=== PATIENT | female | born 1995 | race Native Hawaiian/Other Pacific Islander ===

== ENCOUNTER 2017-03-05 23:16 | Inpatient (IN) | payer OTHER ==
[2017-03-06 00:32] LABS: EGFR Non-African American 136.6 (>60)
[2017-03-06 00:46] LABS: Urine Appearance Clear; Urine Blood Negative (Negative); Urine Color Straw; Urine Ketones Trace (Negative); Urine Protein Negative (Negative); Urine Specific Gravity 1.003 (1.010-1.030); Urine Urobilinogen Negative (Negative)
[2017-03-06 01:19] LABS: ABS Basophils 0.1 10^3/ul (0-0.2); ABS Eosinophils 0.5 10^3/ul (0-0.6); ABS Monocytes 0.9 10^3/ul (0-0.8); ABS Neutrophils 6.8 10^3/ul (1.5-7.7); ABS Nucleated RBC 0 10^3/ul; Hematocrit 38 % (35-47); Lymphocyte % 19.4 % (25-47); Mean Corpuscular HGB Conc 31 g/dl (31-36); Mean Corpuscular Hemoglobin 20 pg (27-31); Mean Corpuscular Volume 64 fL (80-97); Mean Platelet Volume 8 um3 (7.4-10.4); Platelet Count 320 10^3/ul (150-450); Red Blood Count 5.99 10^6/ul (4.0-5.4); Red Cell Distribution Width 16 % (10.5-15); White Blood Count 10.3 10^3/ul (3.5-10.8)
[2017-03-06 01:20] LABS: Eosinophil % 4.7 % (0-6); Nucleated Red Blood Cells % 0
[2017-03-06] MEDS ORDERED: LORazepam TAB(*) 1 MG PO ONE (05:03)
[2017-03-06] MEDS ORDERED: Al Hydrox/Mg Hydrox/Simet LIQ* 30 ML UDC PO PRN (06:33)
--- NOTE | 2017-03-06 06:49 | ED ---
Hugo Lopez Thomas, scribed for Mukul Craig on 03/06/17 at 0037 . Psychiatric Complaint - HPI Summary HPI Summary: The patient is a 21 year old female brought in with suicidal ideation. She was brought to the emergency department by her boyfriend. She is diagnosed with anxiety and depression. She has been complaint with her medication. - History Of Current Complaint Chief Complaint: EDMentalHealth Time Seen by Provider: 03/05/17 23:32 Hx Obtained From: Patient Onset/Duration: Still Present Severity Currently: Moderate Character: Depressed Aggravating Factor(s): Other - Unknown Alleviating Factor(s): Other - Unknown Related History: Positive For: Prior Psychiatric Issues Has Suicidal: Reports: Thoughts Has Homicidal: Denies: Thoughts - Allergies/Home Medications Allergies/Adverse Reactions: Allergies Allergy/AdvReac Type Severity Reaction Status Date / Time No Known Allergies Allergy Verified 03/06/17 00:21 PMH/Surg Hx/FS Hx/Imm Hx Endocrine/Hematology History: Denies: Hx Anticoagulant Therapy Psychiatric History: Reports: Hx Anxiety, Hx Depression Infectious Disease History: No Infectious Disease History: Denies: Traveled Outside the [place] in Last 30 Days - Family History Known Family History: Positive: Other - Patient denies relevant FHx - Social History Occupation: Student Lives: Dormitory/Roommates Alcohol Use: None Substance Use Type: Reports: None Smoking Status (MU): Never Smoked Tobacco Review of Systems Negative: Epistaxis Positive: Depressed, Other - Suicidal ideation All Other Systems Reviewed And Are Negative: Yes Physical Exam - Summary Physical Exam Summary: Appearance: Well appearing, no pain distress Skin: warm, dry, reflects adequate perfusion Head/face: normal Eyes: EOMI, MARIELA ENT: normal Neck: supple, non-tender Respiratory: CTA, breath sounds present Cardiovascular: RRR, pulses symmetrical Abdomen: non-tender, soft Bowel: present Musculoskeletal: normal, strength/ROM intact Neuro: normal, sensory motor intact, A&Ox3 Psychiatric: She has a depressed affect. She is tearful. Triage Information Reviewed: Yes Vital Signs On Initial Exam: Initial Vitals Temp Pulse Resp BP Pulse Ox 99.9 F 72 18 116/65 98 03/05/17 23:20 03/05/17 23:20 03/05/17 23:20 03/05/17 23:20 03/05/17 23:20 Vital Signs Reviewed: Yes Diagnostics - Vital Signs Vital Signs Temp Pulse Resp BP Pulse Ox 03/06/17 00:36 100.3 F 63 18 91/55 98 03/05/17 23:20 99.9 F 72 18 116/65 98 - Laboratory Lab Results: Lab Results 03/05/17 Range/Units 23:40 Sodium 134 (133-145) mmol/L Potassium 3.7 (3.5-5.0) mmol/L Chloride 104 (101-111) mmol/L Carbon Dioxide 22 (22-32) mmol/L Anion Gap 8 (2-11) mmol/L BUN 11 (6-24) mg/dL Creatinine 0.57 (0.51-0.95) mg/dL Est GFR ( Amer) 175.7 (>60) Est GFR (Non-Af Amer) 136.6 (>60) BUN/Creatinine Ratio 19.3 (8-20) Glucose 88 (70-100) mg/dL Calcium 9.2 (8.6-10.3) mg/dL Total Bilirubin 0.30 (0.2-1.0) mg/dL AST 15 (13-39) U/L ALT 10 (7-52) U/L Alkaline Phosphatase 48 (34-104) U/L Total Protein 6.8 (6.4-8.9) g/dL Albumin 4.4 (3.2-5.2) g/dL Globulin 2.4 (2-4) g/dL Albumin/Globulin Ratio 1.8 (1-3) TSH Pending Beta HCG, Quant Pending Salicylates < 2.50 (<30) mg/dL Acetaminophen < 15 mcg/mL Serum Alcohol < 10 (<10) mg/dL Result Diagrams: 03/05/17 23:40 03/05/17 23:40 Lab Statement: Any lab studies that have been ordered have been reviewed, and results considered in the medical decision making process. Course/Dx - Course Assessment/Plan: The patient is a 21 year old female brought in with suicidal ideation. The patient is cleared for mental health evaluation. The patient is signed out to the next ED physician pending mental health evaluation. - Differential Dx/Clinical Impression Differential Diagnosis/HQI/PQRI: Positive: Depression, Suicidal Ideation Provider Diagnosis: Depression Discharge - Discharge Plan Condition: Stable Disposition: OTHER Discharge Disposition Comment: Signed out to the next ED physician pending mental health evaluation. The documentation as recorded by the Hugo cason Thomas accurately reflects the service I personally performed and the decisions made by , Mukul Craig.
[2017-03-06] MEDS ORDERED: FLUoxetine CAP* 20 MG PO SCH (09:00)
[2017-03-06] MEDS: Vitamin THERAPEUTIC TAB PO SCH (09:12)
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
--- NOTE | 2017-03-06 11:53 | PN ---
MHU: Group Therapy Note - Service Type Service Type: [id number] Group Psychotherapy - Cognitive Behavioral Group Therapy ( CBT):Patient was attentive and participatory in CBT programming this morning, and remained in good behavioral control. Patient expressed positive insights regarding relevant treatment interventions and goals.
[2017-03-06] MEDS ORDERED: cloNIDine TAB* 0.1 MG PO PRN (16:47)
[2017-03-06] MEDS: clonazePAM TAB(*) 0.5 MG PO SCH (17:18)
[2017-03-06] MEDS ORDERED: QUEtiapine TAB* 25 MG PO SCH (21:00)
[2017-03-06] MEDS: traZODone TAB* 50 MG TAB PO SCH (22:49)
[2017-03-06] MEDS: CMCS:Brexpiprazole (NF) 0.5 MG TAB PO SCH (22:49)
[2017-03-07] MEDS: Acetaminophen TAB* 325 MG PO PRN (07:57)
[2017-03-07] MEDS: CMCS:Atomoxetine (NF) 40 MG CAP PO SCH (07:58)
[2017-03-07] MEDS: Vitamin THERAPEUTIC TAB PO SCH (07:58)
[2017-03-07] MEDS: clonazePAM TAB(*) 0.5 MG PO SCH ×2 (08:01→17:28)
--- NOTE | 2017-03-07 13:49 | PN ---
Subjective - Subjective Subjective: Psychiatric Attending Progress Note: Patient was initially quite upset and labile when she came onto the unit yesterday. Since that time she has settled in quite nicely. no longer crying for mother. She has been cooperative and attending groups with participation and actually shows fair amount of insight and motivation to learn about strategies for managing anxiety and depression. I met with Praveen Today for an hour and learned important information about her mental status, history, strengths, and goals Despite diagnosis of Autism spectrum disorder, Praveen has made gains socially. has boyfriend from [employer] that she has been seeing x 4 years. at [place] she has many friends that she eats meals with and talks to on social media shared with me that she does not feel overwhelmed by returning to college. Decrease from 5 to 4 courses has helped reduce her level of stress and feels that she will be able to handle to work load Was very receptive to medication changes which we discussed in detail. did not feel prozac was helping with anxiety or mood. was oversedated by charlie. We discussed four medications as follows and patient gave informed consent (after reviewing benefits, risks, side effects) to start taking these medications: 1. Trazodone 50 mg qhs for insomnia 2. Rexulti 1 mg qhs for affective instability 3. Klonopin 0.25 mg BId for anxiety and panic 4. Strattera 40 mg for adhd (patient endorsed both hyperactive and inattentive symptoms of adhd) MSE: no SI today brighter affect today hyperverbal but not pressured Impression: ASD high functioning ADHD combined type unspecified Depressive Disorder Plan: medications as above discharge planned for monday will return to school and f/u with providers at [facility]
[2017-03-07] MEDS: traZODone TAB* 50 MG TAB PO SCH (21:02)
[2017-03-07] MEDS: CMCS:Brexpiprazole (NF) 0.5 MG TAB PO SCH (21:02)
[2017-03-08] MEDS: Vitamin THERAPEUTIC TAB PO SCH (08:58)
[2017-03-08] MEDS: CMCS:Atomoxetine (NF) 40 MG CAP PO SCH (08:59)
[2017-03-08] MEDS: clonazePAM TAB(*) 0.5 MG PO SCH (08:59)
[2017-03-08] MEDS: Acetaminophen TAB* 325 MG PO PRN (09:01)
--- NOTE | 2017-03-08 11:46 | PN ---
Subjective - Subjective Subjective: Psychiatric Attending Progress Note Patient attended groups and has not demonstrated the lability that was present when she was first admitted. patient has been particpating in individual and group sessions and clearly shows interest in learning to minimize the effects of anxeity and depression and learn effective coping and managment strategies. Despite decrease in klonpin to 0.25 mg BID she experienced sedation after this morning's dose. patient tolerated first doses of Rexulti and Strattera respectively without any side effects reported Patient has been in touch with mother. Patient also had a meeting with the [facility] counselor yesterday and she felt better after speaking with the couselor. patient was told to inform her teachers that she has been in the hospital so that modifications can be made by teachers in case she requires extension on due date, or extra help. patient intends to arrange for tutoring in JAVA and Linear Algebra classes. She feels confident and about returning to [employer] after discharge from the hospital. She understands that she has an option to withdraw for the semester by Mar 12 with 90 percent tuition reimbursement but feels emotionally up to returning. MSE: poor eye contact. oddly related speech: articulate,fluent mood: hyperthymic, not dysphoric today affect: odd TP organized TC no evidence of psychosis. denies SI today insight: fair judgment: tenuous due to tendency to be impulsive Impression ASD ADHD combined mild to moderate mood disorder unspecified Plan: Strattera 40 mg QAM Trazodone 50 mg qhs Rexulti 0.5 mg QHs d/c scheduled klonopin and make it bid prn due to day time sedation side effect discharge planned for monday. continue to titrate strattera/rexulti MMPI pending
[2017-03-08] MEDS: traZODone TAB* 50 MG TAB PO SCH (20:16)
[2017-03-08] MEDS: CMCS:Brexpiprazole (NF) 0.5 MG TAB PO SCH (20:16)
[2017-03-09] MEDS: CMCS:Atomoxetine (NF) 40 MG CAP PO SCH (08:13)
[2017-03-09] MEDS: Vitamin THERAPEUTIC TAB PO SCH (08:13)
--- NOTE | 2017-03-09 11:28 | PN ---
MHU: Group Therapy Note - Service Type Service Type: [id number] Group Psychotherapy - Cognitive Behavioral Group Therapy ( CBT):Patient was attentive and participatory in CBT programming this morning, and remained in good behavioral control. Patient expressed positive insights regarding relevant treatment interventions and goals.
--- NOTE | 2017-03-09 15:33 | PN ---
Subjective - Subjective Subjective: Psychiatric Attending Progress note attending groups. less anxiety today. reports mood is brighter. denies having suicidal ideation, intent or plan. Tolerating new medications well without any adverse side effects. Looks forward to discharge tomorrow. has plans to attend mental health support group at [facility]. Objective - Appearance Appearance: Well Developed/Nourished Dysmorphic Features: No Hygiene: Normal Grooming: Fairly Well Kept - Behavior Psychomotor Activities: Abnormal-Increased Exhibits Abnormal Movement: No - Attitude and Relatedness Attitude and Relatedness: Cooperative Eye Contact: Poor - Speech Quality: Unpressured Latencies: Normal Quantity: Appropriate - Mood Patient's Decription of Mood: "Good" - Affect Observed Affect: Good Affect Consistent with: Euthymia - Thought Process Patient's Thought Process: Coherent Thought Content: No Passive Wish, No Suicidal Planning, No Homicidal Ideation, No Paranoid Ideation - Sensorium Experiencing Hallucinations: No, Sensorium is Clear Type of Hallucinations: Visual: No, Auditory: No, Command: No - Level of Consciousness Level of Consciousness: Alert Orientation: Yes Intact, Yes Orientated to Time, Yes Orientated to Place, Yes Orientated to Person - Impulse Control Impulse Control: Intact - Insight and Judgement Insight and Judgement: Good - Group Participation Particating in Group Activities: Yes - Medication Management Medication Management Adherence: Yes Assessment - Assessment Merits Inpatient Hospitalization: For Stabilization, For Discharge Planning Clinical Impression: 21 yo with ASD, unspecified depressive disorder, ADHD, admitted with recurrent SI in the context of academic stress at school. SI has remitted. patient's mood is stable and she is tolerating medications without side effects Plan - Plan Medications: Current Medications Acetaminophen (Tylenol Tab*) 650 mg PO Q4H PRN PRN Reason: PAIN or TEMP > 101 F Last Admin: 03/08/17 09:01 Dose: 650 mg Al Hydrox/Mg Hydrox/Simethicone (Maalox Plus*) 30 ml PO Q4H PRN PRN Reason: INDIGESTION Atomoxetine HCl (Strattera (Nf)) 40 mg PO DAILY@0900 [facility] PRN Reason: Protocol Last Admin: 03/09/17 08:13 Dose: 40 mg Brexpiprazole (Rexulti 0.5 Mg Tab (Nf)) 0.5 mg PO BEDTIME [facility] Last Admin: 03/08/17 20:16 Dose: 0.5 mg Clonidine HCl (Catapres Tab*) 0.1 mg PO BID PRN PRN Reason: anxiety/agitation Multivitamins (Theragran Tab*) 1 tab PO DAILY [facility] Last Admin: 03/09/17 08:13 Dose: 1 tab Throat Lozenges (Chloraseptic Scott*) 1 scott PO Q2H PRN PRN Reason: SORE THROAT Trazodone HCl (Desyrel Tab*) 50 mg PO BEDTIME [facility] Last Admin: 03/08/17 20:16 Dose: 50 mg parents to come in at 1 pm for family meeting followed by discharge patient will follow at [facility] at [facility]
--- NOTE | 2017-03-09 17:42 | PN ---
MHU: Group Therapy Note - Service Type Service Type: [id number] Group Psychotherapy - Medication Education Group: Patient was attentive and participatory in group, and remained in good behavioral control. Patient expressed positive insights regarding relevant treatment interventions. Patient stated understanding of material discussed and had appropriate questions.
[2017-03-09] MEDS: traZODone TAB* 50 MG TAB PO SCH (20:09)
[2017-03-09] MEDS: CMCS:Brexpiprazole (NF) 0.5 MG TAB PO SCH (20:09)
[2017-03-09] MEDS: Benzocaine/Menthol LOZ* 1 LOZENGE PO PRN (20:11)
[2017-03-10] MEDS: Acetaminophen TAB* 325 MG PO PRN (03:44)
[2017-03-10] MEDS: Benzocaine/Menthol LOZ* 1 LOZENGE PO PRN (03:44)
[2017-03-10] MEDS: CMCS:Atomoxetine (NF) 40 MG CAP PO SCH (08:28)
[2017-03-10] MEDS: Vitamin THERAPEUTIC TAB PO SCH (08:28)
[2017-03-10 09:26] VITALS: BP 99/54
--- NOTE | 2017-03-10 10:51 | DCNOTE ---
DC Assessment - Assessment Clinical Impression: 21 yo with ASD, unspecified depressive disorder, ADHD, admitted with recurrent SI in the context of academic stress at school. SI has remitted. patient's mood is stable and she is tolerating medications without side effects Discharge Planning - Discharge Planning Medications: Current Medications Acetaminophen (Tylenol Tab*) 650 mg PO Q4H PRN PRN Reason: PAIN or TEMP > 101 F Last Admin: 03/10/17 03:44 Dose: 650 mg Al Hydrox/Mg Hydrox/Simethicone (Maalox Plus*) 30 ml PO Q4H PRN PRN Reason: INDIGESTION Atomoxetine HCl (Strattera (Nf)) 40 mg PO DAILY@0900 [facility] PRN Reason: Protocol Last Admin: 03/10/17 08:28 Dose: 40 mg Brexpiprazole (Rexulti 0.5 Mg Tab (Nf)) 0.5 mg PO BEDTIME [facility] Last Admin: 03/09/17 20:09 Dose: 0.5 mg Clonidine HCl (Catapres Tab*) 0.1 mg PO BID PRN PRN Reason: anxiety/agitation Multivitamins (Theragran Tab*) 1 tab PO DAILY [facility] Last Admin: 03/10/17 08:28 Dose: 1 tab Throat Lozenges (Chloraseptic Scott*) 1 scott PO Q2H PRN PRN Reason: SORE THROAT Last Admin: 03/10/17 03:44 Dose: 1 scott Trazodone HCl (Desyrel Tab*) 50 mg PO BEDTIME [facility] Last Admin: 03/09/17 20:09 Dose: 50 mg Discharge Planning: Prescriptions provided for discharge [] Yes [] No Follow up care details as per social work arrangements. Patient response to discharge plan: [] eager for discharge [] agreeable with discharge plan [] ambivalent about discharge [] disagrees with discharge today
--- NOTE | 2017-03-10 13:32 | PN ---
MHU: Group Therapy Note - Service Type Service Type: [id number] Group Psychotherapy - Cognitive Behavioral Group Therapy ( CBT):Patient was attentive and participatory in CBT programming this morning, and remained in good behavioral control. Patient expressed positive insights regarding relevant treatment interventions and goals.
== END 2017-03-10 14:25 | disposition home or self-care (01) | DRG 884 ==
LOC: ED 23:16 → BSU 03-06 06:44
PROVIDERS: ADMIT Psychiatry & Neurology Psychiatry; ATTEND Psychiatry & Neurology Psychiatry
PROC: GZHZZZZ Group Psychotherapy (ICD-10-PCS; principal; 2017-03-06)
DX: F84.0 Autistic disorder (principal); F32.1 Major depressive disorder, single episode, moderate; R45.851 Suicidal ideations; F90.2 Attention-deficit hyperactivity disorder, combined type; F41.0 Panic disorder [episodic paroxysmal anxiety]; Z81.8 Family history of other mental and behavioral disorders; F39 Unspecified mood [affective] disorder
CPT/HCPCS: 36415; 80053; 80307; 80320; 80329; 81003; 81015; 84443; 84702; 85025; 85060; 87086; 90853; 99222; 99231; 99238; A9270-GY; G0480

== ENCOUNTER 2018-06-19 22:56 | Inpatient (IN) | payer OTHER ==
--- NOTE | 2018-06-19 23:08 | ED ---
Psychiatric Complaint - HPI Summary HPI Summary: Pt is a 22 y/o female brought in by EMS and police who presents to the ED c/o SI. As per EMS, pt posted online ([employer]) about killing herself, specifically by hanging or shooting. Upon EMS arrival pt states that her SI resolved. Pt states that she wasnt in the right head space and it was a cry for help. She was having intrusive thoughts of SI. She is stressed about final exams and wants to leave to go study. Pt also notes she had SI 2 months ago, and has been hospitalized in February of 2017. She denies the use of drugs or alcohol. Pt is prescribed Abilify, Ritalin, and Duloxetine. PMHx autism, ADHD, anxiety, panic disorder, depression. - History Of Current Complaint Chief Complaint: EDSuicidal Time Seen by Provider: 06/19/18 22:57 Hx Obtained From: Patient, EMS, Medical Records Onset/Duration: Gradual Onset, Resolved Character: Depressed Aggravating Factor(s): Recent Stress Related History: Positive For: Prior Psychiatric Issues Has Suicidal: Reports: Thoughts, With A Plan - Allergies/Home Medications Allergies/Adverse Reactions: Allergies Allergy/AdvReac Type Severity Reaction Status Date / Time No Known Allergies Allergy Verified 03/06/17 00:21 Home Medications: Home Medications ARIPiprazole TAB* [Abilify 2 MG TAB*] 2 mg PO DAILY 06/19/18 [History Confirmed 06/20/18] Duloxetine HCl [Cymbalta] 20 mg PO DAILY 06/19/18 [History Confirmed 06/20/18] Methylphenidate TAB* [Ritalin TAB*] 5 mg PO DAILY 06/19/18 [History Confirmed ] Methylphenidate TAB* [Ritalin TAB*] 20 mg PO DAILY 06/19/18 [History Confirmed 06/20/18] PMH/Surg Hx/FS Hx/Imm Hx Endocrine/Hematology History: Denies: Hx Anticoagulant Therapy Sensory History: Reports: Hx Contacts or Glasses Denies: Hx Hearing Aid Opthamlomology History: Reports: Hx Contacts or Glasses Psychiatric History: Reports: Hx Anxiety, Hx Attention Deficit Hyperactivity Disorder, Hx Autism, Hx Depression, Hx Panic Disorder, Hx Inpatient Treatment, Hx Community Mental Health Tx Denies: Hx Eating Disorder, Hx Post Traumatic Stress Disorder, Hx Schizophrenia, Hx Bipolar Disorder, Hx Suicide Attempt, Hx of Violent Episodes Against Others, Hx Substance Abuse, Other Psychiatric Issues/Disorders Infectious Disease History: No Infectious Disease History: Denies: Traveled Outside the [place] in Last 30 Days - Family History Known Family History: Positive: Non-Contributory - Social History Alcohol Use: None Hx Substance Use: No Substance Use Type: Reports: None Hx Tobacco Use: No Smoking Status (MU): Never Smoked Tobacco Review of Systems Negative: Fever Positive: Other - SI All Other Systems Reviewed And Are Negative: Yes Physical Exam - Summary Physical Exam Summary: Appearance: well appearing, no pain distress Skin: warm, dry, reflects adequate perfusion Head/face: normal Eyes: EOMI, MARIELA ENT: mucous membranes moist Neck: supple, non-tender Respiratory: CTA, breath sounds present Cardiovascular: RRR, pulses symmetrical Abdomen: non-tender, soft Bowel Sounds: present Musculoskeletal: normal, strength/ROM intact Neuro: normal, sensory motor intact, A&Ox3 Psych: machine-like speech patterns Triage Information Reviewed: Yes Vital Signs On Initial Exam: Initial Vitals Temp Pulse Resp BP Pulse Ox 98.4 F 102 18 144/89 99 06/19/18 22:57 06/19/18 22:57 06/19/18 22:57 06/19/18 22:57 06/19/18 22:57 Vital Signs Reviewed: Yes Diagnostics - Vital Signs Vital Signs Temp Pulse Resp BP Pulse Ox 06/19/18 22:57 98.4 F 102 18 144/89 99 - Laboratory Result Diagrams: 06/19/18 23:01 06/19/18 23:01 Lab Statement: Any lab studies that have been ordered have been reviewed, and results considered in the medical decision making process. Re-Evaluation - Re-Evaluation First Eval Re-Evaluation Time: 23:04 Change: Unchanged Comment: Pt is medically cleared for a MHE. Course/Dx - Course Course Of Treatment: Patient was medically evaluated and cleared for psychiatric evaluation. She has a history of autism spectrum disorder has been in mated several times for mental health issue. Following crisis evaluation was elected by the psychiatrist that she be admitted involuntarily. The patient stable through her ER course. - Differential Dx/Clinical Impression Differential Diagnosis/HQI/PQRI: Positive: Anxiety, Depression, Suicidal Ideation Provider Diagnosis: Autism spectrum disorder, Depression, Adjustment disorder - Physician Notifications Discussed Care Of Patient With: Anatoly Chavez Time Discussed With Above Provider: 02:26 Instructed by Provider To: Admit As Inpatient - As per MH unleavened dough mixer, pt is involuntarily admitted. Discharge - Sign-Out/Discharge Documenting (check all that apply): Patient Departure - Admit Patient Received Moderate/Deep Sedation with Procedure: No - Discharge Plan Condition: Stable Disposition: PSYCHIATRIC FACILITY-[facility] [place] - Billing Disposition and Condition Condition: STABLE Disposition: Psychiatric Facility [facility] [place] - Attestation Statements Document Initiated by Scribe: Yes Documenting Scribe: Lidia Heath Provider For Whom Scribe is Documenting (Include Credential): Giovani Yen MD Scribe Attestation: Lidia Lopez, scribed for Giovani Yen MD on 06/20/18 at 0343. Scribe Documentation Reviewed: Yes Provider Attestation: The documentation as recorded by the scribLidia gunter accurately reflects the service I personally performed and the decisions made by , Giovani Yen MD Status of Scribe Document: Viewed
[2018-06-19 23:10] LABS: Hematocrit 41 % (35-47); Hemoglobin 12.7 g/dL (12.0-16.0); Mean Corpuscular HGB Conc 31 g/dL (31-36); Mean Corpuscular Hemoglobin 20 pg (27-31); Mean Corpuscular Volume 64 fL (80-97); Platelet Count 396 10^3/uL (150-450); Red Blood Count 6.33 10^6 /uL (3.70-4.87); Red Cell Distribution Width 16 % (10.5-15); White Blood Count 10.1 10^3/uL (3.5-10.8)
[2018-06-19 23:27] LABS: ABS Basophils 0.1 10^3/ul (0-0.2); ABS Eosinophils 0.2 10^3/ul (0-0.6); ABS Lymphocytes 2.3 10^3/ul (1.0-4.8); ABS Monocytes 0.9 10^3/ul (0-0.8); ABS Neutrophils 6.5 10^3/ul (1.5-7.7); Nucleated Red Blood Cells % 0.1
[2018-06-19 23:28] LABS: ALT 18 U/L (7-52); AST 25 U/L (13-39); Albumin 4.6 g/dL (3.2-5.2); Albumin/Globulin Ratio 1.6 (1-3); Alkaline Phosphatase 49 U/L (34-104); Anion Gap 9 mmol/L (2-11); BUN/Creatinine Ratio 18.3 (8-20); Blood Urea Nitrogen 11 mg/dL (6-24); CO2 Carbon Dioxide 23 mmol/L (22-32); Calcium 9.4 mg/dL (8.6-10.3); Chloride 105 mmol/L (101-111); EGFR African American 154.2 (>60); EGFR Non-African American 127.5 (>60); Globulin 2.8 g/dL (2-4); Glucose 92 mg/dL (70-100); Microcytosis 2+; Potassium 3.8 mmol/L (3.5-5.0); Sodium 137 mmol/L (135-145); Total Protein 7.4 g/dL (6.4-8.9)
[2018-06-19 23:33] LABS: Alcohol < 10 mg/dL (<10); Salicylate < 2.50 mg/dL (<30)
[2018-06-19 23:34] LABS: HCG Pregnancy < 0.60 mIU/mL
[2018-06-19 23:47] LABS: TSH (Thyroid Stimulating Horm) 2.56 mcIU/mL (0.34-5.60)
[2018-06-19 23:49] LABS: Acetaminophen 3 mcg/mL
[2018-06-20] MEDS ORDERED: Acetaminophen TAB* 325 MG PO PRN (03:51)
[2018-06-20] MEDS ORDERED: Al Hydrox/Mg Hydrox/Simet LIQ* 30 ML UDC PO PRN (03:51)
--- NOTE | 2018-06-20 09:43 | HP ---
H&P (Free Text) History and Physical: Justification for admission: Immediate Safety. CC " I am stressed out" The patient was brought to [facility] by police after the patient posted on [employer] internet site that she had two plans of killing herself. One included shoot herself in the head with a gun. She imagined how the blood would pool and that all her peers would find out through email that she . The other plan included hanging herself in the dorm room. She did not act on these plans and describes them as intrusive thoughts can cause distress. She denied access to firearms or stockpiles of medications. She reported no change in her sleep and or appetite. Patient identifies current stressors as final exams approaching. She began crying and is requesting to see her mother. She said " I am being held against my will and dont need to be here". The patient denied homicidal ideation intent or plan. The patient denied auditory and/ or visual hallucinations. She denied self injurious behavior. Family meeting took place in the comfort room. Father was preoccupied with knowing if [facility] would allow a extension for Praveen take her exam. MDD Patient reported feeling depressed. She reported having crying spells, feeling empty inside, with feelings of hopelessness, and worthlessness. Denied unintentional weight loss and appetite. Denied interruption of sleep , or feeling tired throughout the day. Denied loss of energy or lack of motivation to complete tasks. Denied overwhelming feelings of guilt or decreased concentration. Reported recurrent thoughts of . Anxiety She reported intense anxiety particularly when she experiences intrusive morbid thoughts. She felt restless, high strung, and worrying too much most of the time. Bipolar Denied symptoms of nathaniel such as having many ideas at once. Denied increased talkativeness where no one can interrupt. Denied feeling irritable most of the time while having an persistent abundance of energy most of the day without the use of energy drinks, stimulants, or recreational drug use. Denied an increase in intensity in goal directed activities. Denied having the decreased need to sleep for days , having prolonged elevated heighted mood , or feeling on top of the world. Denied impulsive risky sexual encounters. Denied spending money recklessly , going on spending sprees wiping out savings. Denied impulsively traveling out of town or country, having super singh, and unrealistic wealth or fame. Psychosis Does not endorse hearing things that other people do not hear or seeing things other people do not see. Denied feeling that TV is making references. Denied feeling that people are spying , following , or reading their thoughts. Phobias: Patient denied having excessive fear of a particular thing or situation. Eating disorders: Patient denied having excessive eating habits or feelings of guilt after eating. Denied repeated episodes of self induced vomiting after eating. PTSD Denied flashbacks, nightmares and avoidance of a prior traumatic event. PAST PSYCHIATRIC HISTORY: Prior Diagnosis : Autism spectrum disorder , ADHD, Major Depressive disorder without psychotic features, Panic Disorder. History of past Psychiatric Hospitalizations: 2 prior psychiatric admission. 1st hospitalization at [facility] [facility] [place] ideation. History of past suicide/homicide attempts : Denied past suicide attempts. Denied past homicidal incidents. Outpatient follow-up: Therapy with Abhilash Gutierrez and Psychiatrist Dr. Coy Medications: Past trials of medications include prozac 20mg daily, seroquel 50mg qhs, Rexulti. Current medications include ritalin 20mg daily am and 5mg in the afternoon, cymbalta 20mg daily, abilify 2mg daily. FAMILY HISTORY: - Suicide: Denied family history of suicide. - Mental illness: Uncle Schizophrenia - Substance abuse: Denied substance abuse among family members. SUBSTANCE ABUSE HISTORY: Denied using alcohol, tobacco, heroin and cocaine other illicit substances. Denied recreationally abusing pills. Denied past Substance abuse treatment. SOCIAL HISTORY: Single no children. Currently attending [employer]. Born in the [facility] and moved to the at age 6. Raised by mother and father in [facility] . Diagnosed ASD at age 7 or 8 and received 504 plan in school. Denied a history of physical and or sexual abuse. - Legal history: Denied - service history: Denied PAST MEDICAL HISTORY: Denied heart disease, diabetes, cancer and/ or other medical conditions. - Allergies: Denied drug or other allergies. Physical Exam: Please see ED note Mental Status Exam on Admission APPEARANCE : 22 year old Croatian female who appears stated age. Patient is not malodourous, and appears to have fair hygiene and grooming. BEHAVIOR: Cooperative , calm EYE CONTACT: Fair PSYCHOMOTOR ACTIVITY: No psychomotor agitation or retardation. MOVEMENTS: No abnormal movements observed. SPEECH : Monotone with a delay. Slow rate and rhythm MOOD : " Sad" AFFECT : Type is depressed Range is blunted with shallow depth Mood Incongruent, Labile THOUGHT PROCESS: Formulated and organized in a logical, linear goal directed manner. perseveration THOUGHT CONTENT: poverty of content, preoccupied with discharge PERCEPTION: No current auditory or visual hallucinations. Doesnt appear to be responding to internal cues. SUICIDALITY Recent suicidal ideation with plan. HOMICIDALITY Denied homicidal ideation, intent or plan. Insight/judgment: Poor insight and judgment ORIENTATION: Oriented to self, location, and time. Diagnosis on Admission: Autism spectrum disorder, ADHD, Major Depressive disorder without psychotic features, Obsessive compulsive disorder. Assessment: 22 year old [place] female with history of Autism spectrum disorder , ADHD, Major Depressive disorder without psychotic features, Panic Disorder came to the hospital with suicidal ideation and was admitted to the BSU at [facility]. Plan #Admit to BSU, Q15 minute observation. Start regular diet. Encourage participation in activities on the milieu. #Patient evaluated in ED and was determined by the emergency room Physician to be medically fit for admission to the BSU. # Justification for Admission: For immediate safety per outlined in the [place] Mental Hygiene Code. # Voluntary admission. The patient requires inpatient admission at this time to assure safety, receive treatment and work toward stabilization. # Labs ordered: CBC, CMP, UDS, TSH, HBA1c, TSH, BHCG Toxicology screen, Urine analysis, and lipid profile. #B-HCG was ordered and results are negative. # Obtain collateral information once release is signed. # Family visit took place with mother and father # Collaboration with Social Work to assist with disposition and after care. #Goals before discharge include: Reduce intrusive thoughts. # Start luvox 100mg daily D/C Cymbalta # Start Vyvanse 30mg daily in place of ritalin Acetaminophen (Tylenol Tab*) 650 mg PO Q4H PRN PRN Reason: PAIN or TEMP > 101 F Al Hydrox/Mg Hydrox/Simethicone (Maalox Plus*) 30 ml PO Q4H PRN PRN Reason: INDIGESTION Aripiprazole (Abilify Tab*) 2 mg PO DAILY [facility] Last Admin: 06/20/18 12:38 Dose: 2 mg Duloxetine HCl (Cymbalta Cap*) 20 mg PO DAILY [facility] Multivitamins (Theragran Tab*) 1 tab PO DAILY [facility] Last Admin: 06/20/18 09:52 Dose: Not Given Propranolol HCl (Inderal Tab*) 5 mg PO TID [facility] Last Admin: 06/20/18 12:35 Dose: Not Given The risks, benefits, and alternative treatment options were discussed as well as of the risks of refusing treatment. After this discussion and an acknowledgement of this understanding was made. A risk/ benefit assessment of treatment was considered and discussed with the patient. When comparing the risks of treatment with the dangers of not receiving treatment, the benefits of treatment outweigh the treatment risks at this time. Risks of suicidal ideation , behavioral changes, dystonia, movement disorders, cardiac conduction changes , serotonin syndrome, metabolic risks and NMS were among some of the risks discussed. Vital Signs Temp Pulse Resp BP Pulse Ox 98.6 F 77 16 113/64 99 06/20/18 07:34 06/20/18 07:34 06/20/18 07:34 06/20/18 07:34 06/20/18 07:34 Sodium 137 mmol/L (135-145) 06/19/18 23:01 Potassium 3.8 mmol/L (3.5-5.0) 06/19/18 23:01 BUN 11 mg/dL (6-24) 06/19/18 23:01 Creatinine 0.60 mg/dL (0.51-0.95) 06/19/18 23:01 Calcium 9.4 mg/dL (8.6-10.3) 06/19/18 23:01 AST 25 U/L (13-39) 06/19/18 23:01 ALT 18 U/L (7-52) 06/19/18 23:01
[2018-06-20] MEDS: Vitamin THERAPEUTIC TAB PO SCH (09:52)
[2018-06-20] MEDS ORDERED: FluvoxaMINE (NF) 50 MG TAB PO SCH (12:00)
[2018-06-20] MEDS ORDERED: DULoxetine DR CAP* 20 MG CAP.DR PO SCH ×2 (12:00→13:00)
[2018-06-20] MEDS: Propranolol TAB* 10 MG PO SCH ×2 (12:35→20:36)
[2018-06-20] MEDS: ARIPiprazole TAB* 2 MG PO SCH (12:38)
[2018-06-21] MEDS: CMCS:Lisdexamfetamine(NF) 10 MG CAP PO SCH (08:59)
[2018-06-21] MEDS: Vitamin THERAPEUTIC TAB PO SCH (08:59)
[2018-06-21] MEDS: ARIPiprazole TAB* 2 MG PO SCH (08:59)
[2018-06-21] MEDS: CMCS:FluvoxaMINE (NF) 50 MG TAB PO SCH (08:59)
--- NOTE | 2018-06-21 10:55 | PN ---
Subjective - Subjective Date of Service: 06/21/18 Service Type: [id number] Hosp care 35 min high complexity Subjective: Nursing Report: Patient was visible on unit, no chemical restraints or PRNs. Slept overnight without incident. Attending group activities. CC: "I have imaginary friends Patient was seen and evaluated today. She reported that she is upset because one of her imaginary friends was shot in the foot. She writes down in a journal about what happens between her 4 imaginary friends. The patient shows difficultly in maintaining a conversation however expressed that she would like to do school work and use her computer. She reported having an adequate appetite and sleep. The patient reports attending and participating in day groups. Per nursing no behavioral issues or overnight events reported. Patient reported that she is tolerating medications without side effects. Objective - General Observations Appearance: Neat Appears Stated Age: Yes Stature: WNL Posture: WNL Eye Contact: Avoidant Behavior/Activity: Slowed - Interaction Observations Attitude Towards Examiner: Evasive Stated Mood: Anxious Affect: Blunted, Flat Speech Pattern/Tone: Loud Volume Thought Process: Blocking Perception: WNL Thought Content: Preoccupation/Ruminations Thought Process: Lethality: Passive Wish Hallucination Type: None - Cognitive Function Orientation: A&O x 4 Level of Consciousness: Awake Cognition: Impaired Ability to Abstract Estimated Intelligence: Borderline Range Insight: Difficulty Acknowledging Presence of Psyciatric Problems - Medication Compliance Cooperative with Inpatient Medication Regimen: Yes - Group Participation Participates in Group Activities: Yes Assessment - Assessment Merits Inpatient Hospitalization: For Immediate Safety Clinical Impression: 22 year old female [employer] Student admitted to the BSU after making suicidal statements on [employer] blog. Plan - Plan Treatment Plan: Name: SHAISTA MATTHEW Birthdate: 1995 [id number] #Q30 minute observation with staff pass and computer access #The patient requires inpatient admission at this time to assure safety, receive treatment and work toward stabilization. # Family visit took place with mother and father yesterday. # Family to visit during regular visiting hours # Collaboration with Social Work to assist with disposition and after care. #Goals before discharge include: Reduce intrusive thoughts. # Luvox 100mg daily # Vyvanse 30mg daily Sodium 137 mmol/L (135-145) 06/19/18 23:01 Potassium 3.8 mmol/L (3.5-5.0) 06/19/18 23:01 BUN 11 mg/dL (6-24) 06/19/18 23:01 Creatinine 0.60 mg/dL (0.51-0.95) 06/19/18 23:01 Hemoglobin A1c 5.2 % (4.0-5.6) 06/21/18 07:21 Calcium 9.4 mg/dL (8.6-10.3) 06/19/18 23:01 AST 25 U/L (13-39) 06/19/18 23:01 ALT 18 U/L (7-52) 06/19/18 23:01 Triglycerides 47 mg/dL 06/21/18 07:21 Cholesterol 135 mg/dL 06/21/18 07:21 LDL Cholesterol 63 mg/dL 06/21/18 07:21 Vital Signs Temp Pulse Resp BP Pulse Ox 98.6 F 77 16 113/64 99 06/20/18 07:34 06/20/18 07:34 06/20/18 07:34 06/20/18 07:34 06/20/18 07:34 Continued Medication Management: Different Medication Medications: Current Medications Acetaminophen (Tylenol Tab*) 650 mg PO Q4H PRN PRN Reason: PAIN or TEMP > 101 F Al Hydrox/Mg Hydrox/Simethicone (Maalox Plus*) 30 ml PO Q4H PRN PRN Reason: INDIGESTION Aripiprazole (Abilify Tab*) 2 mg PO DAILY [facility] Last Admin: 06/21/18 08:59 Dose: 2 mg Fluvoxamine Maleate (Fluvoxamine (Nf)) 100 mg PO DAILY [facility] Last Admin: 06/21/18 08:59 Dose: 100 mg Lisdexamfetamine Dimesylate (Vyvanse(Nf)) 30 mg PO DAILY [facility] Last Admin: 06/21/18 08:59 Dose: 30 mg Multivitamins (Theragran Tab*) 1 tab PO DAILY [facility] Last Admin: 06/21/18 08:59 Dose: 1 tab - Discharge Plan Discharge Plan: Inpatient Hospitalization
[2018-06-22] MEDS: ARIPiprazole TAB* 2 MG PO SCH (08:11)
[2018-06-22] MEDS: CMCS:FluvoxaMINE (NF) 50 MG TAB PO SCH (08:12)
[2018-06-22] MEDS: Vitamin THERAPEUTIC TAB PO SCH (08:12)
[2018-06-22] MEDS: CMCS:Lisdexamfetamine(NF) 10 MG CAP PO SCH (08:14)
--- NOTE | 2018-06-22 10:38 | PN ---
Subjective - Subjective Date of Service: 06/22/18 Service Type: [id number] Hosp care 35 min high complexity Subjective: Nursing Report: Patient was visible on unit, no chemical restraints or PRNs. Slept overnight without incident. Attending group activities. CC: "I am okay Patient was seen and evaluated today. She reported that she slept well but was woken up in the middle of the night by noise and went back to bed. She said that her imaginary friends are upset about it. She said there are 100 imaginary friends but she only keeps track of 4 of them. She noted that she prefers the new medication and noticed that her concentration has been maintained longer. She reported having an adequate appetite and sleep. The patient reports attending and participating in day groups. Per nursing no behavioral issues or overnight events reported. Patient reported that she is tolerating medications without side effects. Objective - General Observations Appearance: Neat Appears Stated Age: Yes Stature: WNL Posture: WNL Eye Contact: Avoidant Behavior/Activity: Slowed - Interaction Observations Attitude Towards Examiner: Uncooperative Stated Mood: Anxious Affect: Labile Speech Pattern/Tone: Clear Thought Process: Coherent Perception: WNL Hallucination Type: None Delusion Type: None - Cognitive Function Orientation: A&O x 4 Level of Consciousness: Awake Cognition: Impaired Ability to Abstract Estimated Intelligence: MR Range Insight: WNL - Medication Compliance Cooperative with Inpatient Medication Regimen: Yes - Group Participation Participates in Group Activities: Yes Assessment - Assessment Clinical Impression: 22 year old female [employer] Student admitted to the BSU after making suicidal statements on [employer] blog. Plan - Plan Treatment Plan: Name: SHAISTA MATTHEW Birthdate: 1995 [id number] #Q30 minute observation with staff pass and computer access #The patient requires inpatient admission at this time to assure safety, receive treatment and work toward stabilization. # Family to visit during regular visiting hours # Collaboration with Social Work to assist with disposition and after care. #Goals before discharge include: Reduce intrusive thoughts. Tentative Discharge Monday # Luvox 100mg daily # Vyvanse 30mg daily Sodium 137 mmol/L (135-145) 06/19/18 23:01 Potassium 3.8 mmol/L (3.5-5.0) 06/19/18 23:01 BUN 11 mg/dL (6-24) 06/19/18 23:01 Creatinine 0.60 mg/dL (0.51-0.95) 06/19/18 23:01 Hemoglobin A1c 5.2 % (4.0-5.6) 06/21/18 07:21 Calcium 9.4 mg/dL (8.6-10.3) 06/19/18 23:01 AST 25 U/L (13-39) 06/19/18 23:01 ALT 18 U/L (7-52) 06/19/18 23:01 Triglycerides 47 mg/dL 06/21/18 07:21 Cholesterol 135 mg/dL 06/21/18 07:21 LDL Cholesterol 63 mg/dL 06/21/18 07:21 Vital Signs Temp Pulse Resp BP Pulse Ox 98.9 F 67 16 106/62 98 06/22/18 07:34 06/22/18 07:34 06/22/18 07:34 06/22/18 07:34 06/22/18 07:34 Continued Medication Management: Continue Outpt Medication Medications: Current Medications Acetaminophen (Tylenol Tab*) 650 mg PO Q4H PRN PRN Reason: PAIN or TEMP > 101 F Al Hydrox/Mg Hydrox/Simethicone (Maalox Plus*) 30 ml PO Q4H PRN PRN Reason: INDIGESTION Aripiprazole (Abilify Tab*) 2 mg PO DAILY [facility] Last Admin: 06/22/18 08:11 Dose: 2 mg Fluvoxamine Maleate (Fluvoxamine (Nf)) 100 mg PO DAILY [facility] Last Admin: 06/22/18 08:12 Dose: 100 mg Lisdexamfetamine Dimesylate (Vyvanse(Nf)) 30 mg PO DAILY [facility] Last Admin: 06/22/18 08:14 Dose: 30 mg Multivitamins (Theragran Tab*) 1 tab PO DAILY [facility] Last Admin: 06/22/18 08:12 Dose: 1 tab - Discharge Plan Discharge Plan: Inpatient Hospitalization
--- NOTE | 2018-06-22 11:21 | PN ---
BSU: Group Therapy Note - Service Type Service Type: [id number] Group Psychotherapy - Cognitive Behavioral Group Therapy ( CBT):Patient was attentive and participatory in CBT programming this morning, and remained in good behavioral control. Patient expressed positive insights regarding relevant treatment interventions and goals.
[2018-06-23] MEDS: Vitamin THERAPEUTIC TAB PO SCH (08:57)
[2018-06-23] MEDS: ARIPiprazole TAB* 2 MG PO SCH (08:57)
[2018-06-23] MEDS: CMCS:FluvoxaMINE (NF) 50 MG TAB PO SCH (08:57)
[2018-06-23] MEDS: CMCS:Lisdexamfetamine(NF) 10 MG CAP PO SCH (08:59)
[2018-06-24] MEDS: Vitamin THERAPEUTIC TAB PO SCH (08:56)
[2018-06-24] MEDS: CMCS:Lisdexamfetamine(NF) 10 MG CAP PO SCH (08:56)
[2018-06-24] MEDS: CMCS:FluvoxaMINE (NF) 50 MG TAB PO SCH (08:56)
[2018-06-24] MEDS: ARIPiprazole TAB* 2 MG PO SCH (08:56)
--- NOTE | 2018-06-24 14:42 | PN ---
Subjective - Subjective Date of Service: 06/24/18 Service Type: 57970 Hosp care 15 min low complexity Subjective: Shaista was reluctant to leave group to join me for a brief interview, but was cooperative and engaged. She reports that her mood is stable and he meds seem OK, with no side effects and good effects. She reports sleeping OK. She reports that intrusive thoughts related to suicide have gone away. She says she needs no change of meds or other intervention from me. Objective - General Observations Appearance: Neat Appears Stated Age: Yes Stature: WNL Posture: WNL Eye Contact: Average Behavior/Activity: WNL - Interaction Observations Attitude Towards Examiner: Cooperative Stated Mood: Euthymic Affect: Full Speech Pattern/Tone: Clear, Appropriate, Normal Volume Thought Process: Coherent Perception: WNL Thought Content: WNL Hallucination Type: None - Cognitive Function Orientation: A&O x 4 Level of Consciousness: Awake, Alert, Appropriate Estimated Intelligence: Normal Judgment Within Normal Limits: Yes - Medication Compliance Cooperative with Inpatient Medication Regimen: Yes - Group Participation Participates in Group Activities: Yes Assessment - Assessment Merits Inpatient Hospitalization: For Immediate Safety, For Stabilization, Consolidate Improvements, For Discharge Planning Clinical Impression: 22 year old female [employer] Student admitted to the [facility] after making suicidal statements on [email or web address] blog. Plan - Plan Treatment Plan: Name: SHAISTA MATTHEW Birthdate: 1995 [id number] #Q30 minute observation with staff pass and computer access #The patient requires inpatient admission at this time to assure safety, receive treatment and work toward stabilization. # Family to visit during regular visiting hours # Collaboration with Social Work to assist with disposition and after care. #Goals before discharge include: Reduce intrusive thoughts. Tentative Discharge Monday # Luvox 100mg daily # Vyvanse 30mg daily Sodium 137 mmol/L (135-145) 06/19/18 23:01 Potassium 3.8 mmol/L (3.5-5.0) 06/19/18 23:01 BUN 11 mg/dL (6-24) 06/19/18 23:01 Creatinine 0.60 mg/dL (0.51-0.95) 06/19/18 23:01 Hemoglobin A1c 5.2 % (4.0-5.6) 06/21/18 07:21 Calcium 9.4 mg/dL (8.6-10.3) 06/19/18 23:01 AST 25 U/L (13-39) 06/19/18 23:01 ALT 18 U/L (7-52) 06/19/18 23:01 Triglycerides 47 mg/dL 06/21/18 07:21 Cholesterol 135 mg/dL 06/21/18 07:21 LDL Cholesterol 63 mg/dL 06/21/18 07:21 Vital Signs Temp Pulse Resp BP Pulse Ox 98.9 F 67 16 106/62 98 06/22/18 07:34 06/22/18 07:34 06/22/18 07:34 06/22/18 07:34 06/22/18 07:34 Medications: Current Medications Acetaminophen (Tylenol Tab*) 650 mg PO Q4H PRN PRN Reason: PAIN or TEMP > 101 F Al Hydrox/Mg Hydrox/Simethicone (Maalox Plus*) 30 ml PO Q4H PRN PRN Reason: INDIGESTION Aripiprazole (Abilify Tab*) 2 mg PO DAILY [facility] Last Admin: 06/24/18 08:56 Dose: 2 mg Fluvoxamine Maleate (Fluvoxamine (Nf)) 100 mg PO DAILY [facility] Last Admin: 06/24/18 08:56 Dose: 100 mg Lisdexamfetamine Dimesylate (Vyvanse(Nf)) 30 mg PO DAILY [facility] Last Admin: 06/24/18 08:56 Dose: 30 mg Multivitamins (Theragran Tab*) 1 tab PO DAILY [facility] Last Admin: 06/24/18 08:56 Dose: 1 tab - Discharge Plan Discharge Plan: Outpatient Follow Up
[2018-06-25] MEDS: Vitamin THERAPEUTIC TAB PO SCH (08:45)
[2018-06-25] MEDS: ARIPiprazole TAB* 2 MG PO SCH (08:45)
[2018-06-25] MEDS: CMCS:FluvoxaMINE (NF) 50 MG TAB PO SCH (08:45)
[2018-06-25] MEDS: CMCS:Lisdexamfetamine(NF) 10 MG CAP PO SCH (08:47)
--- NOTE | 2018-06-25 08:56 | DS ---
Subjective - Subjective Service Types: 98010 [facility] Day Mgmt complex over 30 min Discharge Date: 06/25/18 Subjective: CC: I am ready to go home Patient reported that she looks forward to finishing the ester. She reported refusing the blood test today. She reported feeling scared hearing a noise and seeing someone at her door overnight. She reported no longer having intrusive thoughts. Justification for admission: Immediate Safety. CC " I am stressed out" The patient was brought to [facility] by police after the patient posted on [employer] internet site that she had two plans of killing herself. One included shoot herself in the head with a gun. She imagined how the blood would pool and that all her peers would find out through email that she . The other plan included hanging herself in the dorm room. She did not act on these plans and describes them as intrusive thoughts can cause distress. She denied access to firearms or stockpiles of medications. She reported no change in her sleep and or appetite. Patient identifies current stressors as final exams approaching. She began crying and is requesting to see her mother. She said " I am being held against my will and dont need to be here". The patient denied homicidal ideation intent or plan. The patient denied auditory and/ or visual hallucinations. She denied self injurious behavior. Family meeting took place in the comfort room. Father was preoccupied with knowing if [facility] would allow a extension for Praveen take her exam. MDD Patient reported feeling depressed. She reported having crying spells, feeling empty inside, with feelings of hopelessness, and worthlessness. Denied unintentional weight loss and appetite. Denied interruption of sleep , or feeling tired throughout the day. Denied loss of energy or lack of motivation to complete tasks. Denied overwhelming feelings of guilt or decreased concentration. Reported recurrent thoughts of . Anxiety She reported intense anxiety particularly when she experiences intrusive morbid thoughts. She felt restless, high strung, and worrying too much most of the time. Bipolar Denied symptoms of nathaniel such as having many ideas at once. Denied increased talkativeness where no one can interrupt. Denied feeling irritable most of the time while having an persistent abundance of energy most of the day without the use of energy drinks, stimulants, or recreational drug use. Denied an increase in intensity in goal directed activities. Denied having the decreased need to sleep for days , having prolonged elevated heighted mood , or feeling on top of the world. Denied impulsive risky sexual encounters. Denied spending money recklessly , going on spending sprees wiping out savings. Denied impulsively traveling out of town or country, having super singh, and unrealistic wealth or fame. Psychosis Does not endorse hearing things that other people do not hear or seeing things other people do not see. Denied feeling that TV is making references. Denied feeling that people are spying , following , or reading their thoughts. Phobias: Patient denied having excessive fear of a particular thing or situation. Eating disorders: Patient denied having excessive eating habits or feelings of guilt after eating. Denied repeated episodes of self induced vomiting after eating. PTSD Denied flashbacks, nightmares and avoidance of a prior traumatic event. PAST PSYCHIATRIC HISTORY: Prior Diagnosis : Autism spectrum disorder , ADHD, Major Depressive disorder without psychotic features, Panic Disorder. History of past Psychiatric Hospitalizations: 2 prior psychiatric admission. [facility]st hospitalization [facility] Feb 07 2017. [facility] Feb. for suicidal ideation. History of past suicide/homicide attempts : Denied past suicide attempts. Denied past homicidal incidents. Outpatient follow-up: Therapy with Abhilash Gutierrez and Psychiatrist Dr. Coy Medications: Past trials of medications include prozac 20mg daily, seroquel 50mg qhs, Rexulti. Current medications include ritalin 20mg daily am and 5mg in the afternoon, cymbalta 20mg daily, abilify 2mg daily. FAMILY HISTORY: - Suicide: Denied family history of suicide. - Mental illness: Uncle Schizophrenia - Substance abuse: Denied substance abuse among family members. SUBSTANCE ABUSE HISTORY: Denied using alcohol, tobacco, heroin and cocaine other illicit substances. Denied recreationally abusing pills. Denied past Substance abuse treatment. SOCIAL HISTORY: Single no children. Currently attending [employer]. Born in the [facility] and moved to the [place] at age 6. Raised by mother and father in [facility] . Diagnosed ASD at age 7 or 8 and received 504 plan in school. Denied a history of physical and or sexual abuse. - Legal history: Denied - service history: Denied PAST MEDICAL HISTORY: Denied heart disease, diabetes, cancer and/ or other medical conditions. - Allergies: Denied drug or other allergies. Physical Exam: Please see ED note Mental Status Exam on Admission APPEARANCE : 22 year old [place] female who appears stated age. Patient is not malodourous, and appears to have fair hygiene and grooming. BEHAVIOR: Cooperative , calm EYE CONTACT: Fair PSYCHOMOTOR ACTIVITY: No psychomotor agitation or retardation. MOVEMENTS: No abnormal movements observed. SPEECH : Monotone with a delay. Slow rate and rhythm MOOD : " Sad" AFFECT : Type is depressed Range is blunted with shallow depth Mood Incongruent, Labile THOUGHT PROCESS: Formulated and organized in a logical, linear goal directed manner. perseveration THOUGHT CONTENT: poverty of content, preoccupied with discharge PERCEPTION: No current auditory or visual hallucinations. Doesnt appear to be responding to internal cues. SUICIDALITY Recent suicidal ideation with plan. HOMICIDALITY Denied homicidal ideation, intent or plan. Insight/judgment: Poor insight and judgment ORIENTATION: Oriented to self, location, and time. Diagnosis on Admission: Autism spectrum disorder, ADHD, Major Depressive disorder without psychotic features, Obsessive compulsive disorder. Diagnosis on Discharge: Autism spectrum disorder, ADHD, Major Depressive disorder without psychotic features, Obsessive compulsive disorder. Condition at the time of discharge: At the time of discharge patient showed improvement of sleep and appetite. The patient was not a danger to self or others. The patient denied suicidal ideation , intent or plan. The patient denied homicidal targets, ideation, intent or plan. This patient participated in psychosocial rehabilitation and gained some insight into problems. The patient gained insight into mental illness, triggers, and treatment. The patient took medication as prescribed. The patient denied side effects of medication and objective signs of side effects were not evident. Therapy Resources were offered to the patient. Patient was given a supply of prescriptions at the time of discharge. The patient plans to attend follow up care with the follow up arrangements that were discussed and put in place. Patient was asked to keep appointments as scheduled, take medication as prescribed, have routine follow up care with their primary care physician and refrain from any use of alcohol or drugs. Objective - General Observations Appearance: Neat Appears Stated Age: Yes Stature: WNL Posture: WNL Eye Contact: Average Behavior/Activity: WNL - Interaction Observations Attitude Towards Examiner: Cooperative Stated Mood: Euthymic Affect: Blunted Speech Pattern/Tone: Clear Thought Process: Coherent Perception: WNL Thought Content: WNL Hallucination Type: None Delusion Type: None - Cognitive Function Orientation: A&O x 4 Level of Consciousness: Awake Cognition: WNL, Impaired Cognition, Impaired Ability to Abstract Estimated Intelligence: Borderline Range - Medication Compliance Cooperative with Inpatient Medication Regimen: Yes - Group Participation Participates in Group Activities: Yes Treatment Course & Assessment Clinical Course & Impression: Hospital course part A: 22 year old female [employer] Student admitted to the [facility] after making suicidal statements on [employer] blog. Hospital course part B: Labs ordered included CBC, CMP, UDS, TSH, HBA1c, TSH, Toxicology screen, Urine analysis, and lipid profile. Labs were reviewed and did not require the need for further evaluation. Vital signs were monitored during the course of admission. Patient endorsed risky sexual encounters. HIV, Hepatitis and RPR ordered and patient refused stating that protection was used and she has no concern about infection. MMPI was ordered and patient did not complete. The patient was admitted to the adult behavioral unit and placed on 15 minute check for safety. At a later time the patient was on Q30 minute observation and staff pass privileges. With those limits being extended , there were no occurrence of behavioral incidents. The patient did well on the unit and went to groups. Interacted with peers had adequate sleep and regular appetite. Tolerated medication changes without side effects. Group therapy and services were offered. The risks, benefits, and alternative treatment options were discussed as well as of the risks of refusing treatment. Treatment associated risks discussed. After this discussion and made an acknowledgement of this understanding. Follow up care appointments were put in place for follow up care. The importance of monitoring for metabolic changes was discussed and acknowledgement of this understanding was made. Improvements in patient from the time of admission include: Improved affect, sleep and decrease in anxiety. No longer suicidal and no longer having feelings of hopelessness. The patient expressed readiness for discharge home. The patient presents with a broader range of affect, and the absence of depressed mood, delusions, perceptual disturbances. The patient denied suicidal and or homicidal ideation intent or plan. Overall, the patient responded well to inpatient treatment as evidenced by their report of strengthening of coping mechanisms, reduced distress, and more positive outlook on circumstances. Of note there was an improvement of recognizing how emotional state can effect mood and behavior. One coping mechanism for her is to journal. Safety precautions were put in place which included involving the patient and their family to closely monitor for changes in mental state. In addition, implementing follow up care, screening for the need to remove/securing firearms , weapons and stockpile of medications. Patient/ family instructed to immediately call 911 should any safety concerns arise. GEAR ROOM KEEPER was checked no indications of prescription abuse or diversion were present. Patient advised of the lethality and dangerousness of combining medications with pain medications and/ or with alcohol and acknowledged this understanding. Her full name is Praveen Mcduffie. AIMS was performed and insignificant for involuntary movement disorders. B-HCG is negative for current . She was informed of the risks associated with medication in . In the event that she becomes in the future and was advised to talk with her outpatient healthcare provider about starting or stopping medications during . The patient was advised of the 24 hour / 7 days a week availability of the emergency room and to call 911 in the event of an emergency such as being suicidal and/ or homicidal. The patient was informed of the contact information for [facility], Suicide Prevention and Crisis Services, National Suicide Prevention Lifeline, [facility], Alcoholics Anonymous, and [facility]. Medications started included vyvanse 30mg daily for ADHD and luvox 100mg for obsessive compulsive disorder. Abilify 2mg daily was continued. Cymbalta and ritalin were discontinued. She showed positive clinical effectiveness with the recent changes in her medication. Family meeting took place with her family. Warning signs were discussed and she plans to keep direct clear communication with her family members. Her mother is a primary source of support for her. Patient will be discharged to her apartment in [place] and picked up by her parents. Patients level of functioning was discussed and her parents plan to decide to monitor her stress level and be in charge of deciding if school is becoming overwhelmingly stressful they plan to take her out of school. Academic accommodations are currently being provided to her at [employer]. She plans to take summer courses. No behavioral incidents took place over her admission. Patient stated she no longer has thought intrusions. Socialization programs were encouraged. Patients home medications of Ritalin, cymbalta, and abilify were unable to be located. Abilify was provided at the hospital pharmacy and the rest of her medications were filled at [facility]. Pharmacy canceled initial vyvanse order of 3x 10mg daily tablets and replaced them with once daily 30mg tablets. Follow up appointment with Abhilash Gutierrez and Divya Coy NP Patient informed of follow up appointment times. See more details for follow of care in discharge plan. Risk factors: Single, history of mental illness. Protective factors: Currently no suicidal ideation, intent or plan. No prior history of suicide attempt. Has strong support system. No history of service. Currently no feelings of hopelessness, not in an occupation of social isolation, doesnt have multiple medical conditions, no family history of suicide, doesnt have access to firearms. Doesnt have command hallucinations and or psychotic features at this time. No history of substance abuse. No history of alcohol abuse. Not a anniversary of a loss of a loved one. No changes in relationship status, housing, job, or school. Currently future orientated. Patient engaged in treatment and compliant with medication. Vital Signs 06/25/18 07:55 Temperature 98.8 F Pulse Rate 77 Respiratory 16 Rate Blood Pressure 98/53 (mmHg) O2 Sat by Pulse 100 Oximetry Sodium 137 mmol/L (135-145) 06/19/18 23:01 Potassium 3.8 mmol/L (3.5-5.0) 06/19/18 23:01 BUN 11 mg/dL (6-24) 06/19/18 23:01 Creatinine 0.60 mg/dL (0.51-0.95) 06/19/18 23:01 Hemoglobin A1c 5.2 % (4.0-5.6) 06/21/18 07:21 Calcium 9.4 mg/dL (8.6-10.3) 06/19/18 23:01 AST 25 U/L (13-39) 06/19/18 23:01 ALT 18 U/L (7-52) 06/19/18 23:01 Triglycerides 47 mg/dL 06/21/18 07:21 Cholesterol 135 mg/dL 06/21/18 07:21 LDL Cholesterol 63 mg/dL 06/21/18 07:21 Merits Inpatient Hospitalization: No Clear for Discharge: Adequate Clinical Respons Discharge Planning - Discharge Planning Discharge Plan: Outpatient Follow Up Outpatient Program: Private Clinician(s) Recommendations for Continuing Care: Medication Management Medications: Current Medications Acetaminophen (Tylenol Tab*) 650 mg PO Q4H PRN PRN Reason: PAIN or TEMP > 101 F Al Hydrox/Mg Hydrox/Simethicone (Maalox Plus*) 30 ml PO Q4H PRN PRN Reason: INDIGESTION Aripiprazole (Abilify Tab*) 2 mg PO DAILY [facility] Last Admin: 06/25/18 08:45 Dose: 2 mg Fluvoxamine Maleate (Fluvoxamine (Nf)) 100 mg PO DAILY [facility] Last Admin: 06/25/18 08:45 Dose: 100 mg Lisdexamfetamine Dimesylate (Vyvanse(Nf)) 30 mg PO DAILY [facility] Last Admin: 06/25/18 08:47 Dose: 30 mg Multivitamins (Theragran Tab*) 1 tab PO DAILY [facility] Last Admin: 06/25/18 08:45 Dose: 1 tab Discharge Planning: Prescriptions provided for discharge [x] Yes [] No Follow up care details as per social work arrangements. Patient response to discharge plan: [] eager for discharge [x] agreeable with discharge plan [] ambivalent about discharge [] disagrees with discharge today
[2018-06-25 09:00] VITALS: BP 98/53
== END 2018-06-25 15:50 | disposition home or self-care (01) | DRG 884 ==
LOC: ED 22:56 → BSU 06-20 03:16
PROVIDERS: ADMIT Psychiatry & Neurology Psychiatry; ATTEND Psychiatry & Neurology Psychiatry
PROC: GZHZZZZ Group Psychotherapy (ICD-10-PCS; principal; 2018-06-22)
DX: F84.0 Autistic disorder (principal); R45.851 Suicidal ideations; F41.0 Panic disorder [episodic paroxysmal anxiety]; F32.9 Major depressive disorder, single episode, unspecified; F42.9 Obsessive-compulsive disorder, unspecified; F90.9 Attention-deficit hyperactivity disorder, unspecified type; Z81.8 Family history of other mental and behavioral disorders
CPT/HCPCS: 36415; 80053; 80061; 80320; 80329; 83036; 84443; 84702; 85025; 90853; 99222; 99231; 99233; 99238; 99284; A9270-GY; G0480